=== PATIENT | female | born 1955 | race Caucasian/White ===

== ENCOUNTER 2022-12-01 15:43 | Emergency (ER) | payer BC ==
[~2022-12-01] VITALS: Ht 167.6 cm; Wt 56.7 kg
[2022-12-01] MEDS ORDERED: IBUPROFEN 600 MG TABLET ONE (16:32)
[2022-12-01] MEDS: IBUPROFEN 600 MG TABLET PO ONE (16:38)
--- NOTE | 2022-12-01 16:51 | NUR ---
PT IN BED 12 C/O FALL WITH SHOULDER PULLED BY DOGS NO HEAD TRAUMA STATED NO BLOOD THINNERS BEING TAKEN NKA AWAITING X RAY.
[2022-12-01] MEDS ORDERED: MORPHINE SULFATE INJ 4 MG/ML DISP.SYRIN ONE (17:42)
[2022-12-01] MEDS: MORPHINE SULFATE INJ 2 MG/ML DISP.SYRIN IM ONE (18:21)
[2022-12-01 20:10] VITALS: BP 137/85
== END 2022-12-01 20:11 | disposition home or self-care (01) ==
LOC: ER 15:55
DX: S42.291A Other displaced fracture of upper end of right humerus, initial encounter for closed fracture (principal); W01.0XXA Fall on same level from slipping, tripping and stumbling without subsequent striking against object, initial encounter; Y93.K1 Activity, walking an animal; Y92.89 Other specified places as the place of occurrence of the external cause; Y99.8 Other external cause status
CPT/HCPCS: 99285; 23650; 99152; 73030 ×2; J2270; G0500